=== PATIENT | female | born 1945 | race Caucasian/White ===

== ENCOUNTER 2022-11-24 15:16 | Inpatient (IN) | payer OTHER ==
[~2022-11-24] VITALS: Ht 162.6 cm; Wt 73.7 kg
[2022-11-24 16:08] LABS: Basophils # (auto) 0.1 10 ^3/uL (0-0.2); Basophils % (auto) 0.5 % (0.0-2.0); Eosinophils # (auto) 0.1 10 ^3/uL (0-0.8); Eosinophils % (auto) 0.6 % (0.0-7.0); Hematocrit 40.1 % (36.0-46.0); Hemoglobin 13.3 g/dL (12.2-16.2); Lymphocytes # (auto) 1.4 10 ^3/uL (0.4-5.4); Lymphocytes % (auto) 9.3 % (10.0-50.0); Mean Corpuscular Hemoglobin 29.7 pg (28.0-32.0); Mean Corpuscular Hgb Conc. 33.3 g/dL (32.0-36.0); Mean Corpuscular Volume 89.2 fL (80.0-100.0); Monocytes # (auto) 1.3 10 ^3/uL (0-1.3); Monocytes % (auto) 8.7 % (0.0-12.0); Neutrophils # (auto) 12.4 10 ^3/uL (1.6-8.6); Neutrophils % (auto) 80.9 % (37.0-80.0); Nucleated Red Blood Cells % 0.1 %; Red Blood Cells 4.49 10^6/uL (4.0-5.20); Red Cell Distribution Width 14.5 % (11.8-14.3); White Blood Cell 15.3 10^3/uL (4.4-10.8)
[2022-11-24 16:27] LABS: Albumin 2.8 g/dL (3.4-5.0); BUN/Creatinine Ratio 23.5; Calcium 9.3 mg/dL (8.5-10.1); Potassium 3.5 mmol/L (3.5-5.1)
[2022-11-24 16:35] LABS: CRP High Sensitivity 4.94 mg/dL (< 0.3); Total Protein 7.2 g/dL (6.4-8.2)
[2022-11-24] MEDS ORDERED: CLINDAMYCIN 900MG IV 50 ML IV ONE (19:15)
[2022-11-24] MEDS ORDERED: ACETAMINOPHEN 325 MG TAB PO PRN (22:45)
[2022-11-24] MEDS ORDERED: ONDANSETRON HCL 4 MG/2 ML VIAL IV PRN (22:45)
[2022-11-24] MEDS ORDERED: SODIUM CHLORIDE 0.9% 1,000 ML IV SCH (22:45)
[2022-11-24] MEDS ORDERED: DOCUSATE SOD 100 MG CAP PO PRN (22:45)
[2022-11-24] MEDS ORDERED: CLINDAMYCIN 600MG IV 50 ML IV SCH (23:01)
[2022-11-25] MEDS ORDERED: MORPHINE SULFATE INJ 2 MG/ml SYRG IV PRN (02:15)
[2022-11-25] MEDS ORDERED: NITROGLYCERIN 0.4 MG SL TAB SL PRN (02:15)
[2022-11-25] MEDS: HYDROcodone-ACET 5/325MG TAB PO PRN ×2 (03:26→22:33)
[2022-11-25 07:01] LABS: Albumin 2.2 g/dL (3.4-5.0); BUN/Creatinine Ratio 26.4; Calcium 8.6 mg/dL (8.5-10.1); Potassium 3.4 mmol/L (3.5-5.1)
[2022-11-25 07:03] LABS: Total Protein 6.2 g/dL (6.4-8.2)
[2022-11-25 09:21] LABS: Basophils # (auto) 0.1 10 ^3/uL (0-0.2); Basophils % (auto) 0.5 % (0.0-2.0); Eosinophils # (auto) 0.1 10 ^3/uL (0-0.8); Hematocrit 35.5 % (36.0-46.0); Hemoglobin 11.4 g/dL (12.2-16.2); Lymphocytes # (auto) 1.5 10 ^3/uL (0.4-5.4); Lymphocytes % (auto) 11.3 % (10.0-50.0); Mean Corpuscular Hemoglobin 28.3 pg (28.0-32.0); Mean Corpuscular Volume 88.5 fL (80.0-100.0); Monocytes # (auto) 1.1 10 ^3/uL (0-1.3); Monocytes % (auto) 8.5 % (0.0-12.0); Neutrophils # (auto) 10.4 10 ^3/uL (1.6-8.6); Neutrophils % (auto) 78.7 % (37.0-80.0); Nucleated Red Blood Cells % 0.1 %; Red Blood Cells 4.01 10^6/uL (4.0-5.20); Red Cell Distribution Width 14.1 % (11.8-14.3); White Blood Cell 13.1 10^3/uL (4.4-10.8)
[2022-11-25] MEDS ORDERED: CLINDAMYCIN 600MG IV 50 ML IV SCH (10:00)
[2022-11-25] MEDS ORDERED: POTASSIUM CHL 20 Meq TABLET PO ONE (10:30)
[2022-11-25] MEDS ORDERED: ERGOCALCIFEROL 50,000 UNIT(1.25MG) CAP PO SCH (10:45)
[2022-11-25] MEDS ORDERED: VANCOMYCIN PER PHARMACY 0 MG IV SCH (12:00)
[2022-11-25] MEDS ORDERED: VANCOMYCIN 1GM/250ML 250 ML IV ONE (12:45)
[2022-11-25] MEDS: AMPICILLIN & SULBACTAM SODIUM 3 GM in SODIUM CHL 0.9% 100 ML IV SCH ×3 (15:28→22:40)
[2022-11-25] MEDS: ZINC SULFATE 220mg CAP or TAB PO SCH (15:38)
[2022-11-25] MEDS: ASCORBIC ACID 500 MG TAB PO SCH ×2 (15:38→22:33)
[2022-11-25] MEDS: ENOXAPARIN SOD 40 MG/0.4 ML SYRINGE SC SCH (15:39)
[2022-11-25 22:12] VITALS: BP 130/65
[2022-11-26] VITALS (7 sets, daily range): BP systolic 102–140; BP diastolic 46–70
[2022-11-26] MEDS: IBUPROFEN 400 MG TAB PO PRN (02:19)
[2022-11-26] MEDS: AMPICILLIN & SULBACTAM SODIUM 3 GM in SODIUM CHL 0.9% 100 ML IV SCH ×4 (04:30→21:31)
[2022-11-26 08:14] LABS: Basophils # (auto) 0.1 10 ^3/uL (0-0.2); Basophils % (auto) 0.6 % (0.0-2.0); Eosinophils # (auto) 0.2 10 ^3/uL (0-0.8); Eosinophils % (auto) 1.6 % (0.0-7.0); Hematocrit 33.6 % (36.0-46.0); Lymphocytes # (auto) 1.9 10 ^3/uL (0.4-5.4); Mean Corpuscular Hemoglobin 29.2 pg (28.0-32.0); Mean Corpuscular Hgb Conc. 32.8 g/dL (32.0-36.0); Monocytes % (auto) 9.8 % (0.0-12.0); Neutrophils # (auto) 6.9 10 ^3/uL (1.6-8.6); Nucleated Red Blood Cells % 0.1 %; Red Blood Cells 3.77 10^6/uL (4.0-5.20); Red Cell Distribution Width 14.1 % (11.8-14.3); White Blood Cell 9.9 10^3/uL (4.4-10.8)
[2022-11-26 08:34] LABS: Calcium 7.9 mg/dL (8.5-10.1); Magnesium 2.2 mg/dL (1.6-2.6); Potassium 3.3 mmol/L (3.5-5.1)
[2022-11-26 08:37] LABS: Phosphorus 2.6 mg/dL (2.5-4.90)
[2022-11-26] MEDS: ASCORBIC ACID 500 MG TAB PO SCH ×2 (10:46→21:31)
[2022-11-26] MEDS: ENOXAPARIN SOD 40 MG/0.4 ML SYRINGE SC SCH (10:46)
[2022-11-26] MEDS: ZINC SULFATE 220mg CAP or TAB PO SCH (10:46)
[2022-11-26] MEDS: VANCOMYCIN 1GM/250ML 250 ML IV SCH (12:34)
[2022-11-26] MEDS: HYDROcodone-ACET 5/325MG TAB PO PRN (19:31)
[2022-11-27] MEDS: IBUPROFEN 400 MG TAB PO PRN ×4 (00:44→22:51)
[2022-11-27] MEDS: HYDROcodone-ACET 5/325MG TAB PO PRN ×4 (01:43→18:25)
[2022-11-27] MEDS: AMPICILLIN & SULBACTAM SODIUM 3 GM in SODIUM CHL 0.9% 100 ML IV SCH ×3 (04:24→15:16)
[2022-11-27 04:27] VITALS: BP 135/70
[2022-11-27] MEDS: VANCOMYCIN 1GM/250ML 250 ML IV SCH (05:45)
[2022-11-27] MEDS: ZINC SULFATE 220mg CAP or TAB PO SCH (08:06)
[2022-11-27] MEDS: ENOXAPARIN SOD 40 MG/0.4 ML SYRINGE SC SCH (08:07)
[2022-11-27] MEDS: ASCORBIC ACID 500 MG TAB PO SCH ×2 (08:07→22:50)
[2022-11-27 08:10] VITALS: BP 124/69
[2022-11-27 09:17] VITALS: BP 142/71
[2022-11-27 13:10] VITALS: BP 130/57
[2022-11-27] MEDS ORDERED: CIP500T GT (14:48)
[2022-11-27] MEDS ORDERED: SILV-21 EX (14:48)
[2022-11-27] MEDS ORDERED: IBUP600T28 PO (14:48)
[2022-11-27] MEDS ORDERED: LEUC5TAB PO (14:48)
[2022-11-27] MEDS ORDERED: ONDA-155 PO (14:48)
[2022-11-27] MEDS: ERTAPENEM SOD INJ 1 GM in SODIUM CHL 0.9% 50 ML IV SCH (16:43)
[2022-11-27 17:00] VITALS: BP 130/65
[2022-11-27 22:00] VITALS: BP 155/70
[2022-11-28 05:00] VITALS: BP 119/67
[2022-11-28] MEDS: IBUPROFEN 400 MG TAB PO PRN ×2 (05:18→23:46)
[2022-11-28 08:10] VITALS: BP 149/74
[2022-11-28] MEDS: ENOXAPARIN SOD 40 MG/0.4 ML SYRINGE SC SCH (09:09)
[2022-11-28] MEDS: ASCORBIC ACID 500 MG TAB PO SCH ×2 (09:10→20:25)
[2022-11-28] MEDS: ZINC SULFATE 220mg CAP or TAB PO SCH (09:10)
[2022-11-28] MEDS: HYDROcodone-ACET 5/325MG TAB PO PRN ×2 (09:10→20:24)
[2022-11-28 09:56] LABS: BUN/Creatinine Ratio 14.1; Magnesium 1.9 mg/dL (1.6-2.6); Potassium 4.1 mmol/L (3.5-5.1)
[2022-11-28 09:57] LABS: Basophils # (auto) 0.1 10 ^3/uL (0-0.2); Basophils % (auto) 0.7 % (0.0-2.0); Eosinophils # (auto) 0.3 10 ^3/uL (0-0.8); Eosinophils % (auto) 3.1 % (0.0-7.0); Hematocrit 35.1 % (36.0-46.0); Hemoglobin 11.5 g/dL (12.2-16.2); Lymphocytes # (auto) 1.6 10 ^3/uL (0.4-5.4); Lymphocytes % (auto) 17.6 % (10.0-50.0); Mean Corpuscular Hemoglobin 29.7 pg (28.0-32.0); Mean Corpuscular Hgb Conc. 32.8 g/dL (32.0-36.0); Mean Corpuscular Volume 90.4 fL (80.0-100.0); Monocytes # (auto) 0.6 10 ^3/uL (0-1.3); Monocytes % (auto) 6.7 % (0.0-12.0); Neutrophils # (auto) 6.6 10 ^3/uL (1.6-8.6); Neutrophils % (auto) 71.9 % (37.0-80.0); Red Blood Cells 3.88 10^6/uL (4.0-5.20); Red Cell Distribution Width 14.5 % (11.8-14.3); White Blood Cell 9.2 10^3/uL (4.4-10.8)
[2022-11-28] MEDS: ERTAPENEM SOD INJ 1 GM in SODIUM CHL 0.9% 50 ML IV SCH (10:23)
[2022-11-28 12:15] VITALS: BP 139/62
[2022-11-28 16:15] VITALS: BP 127/66
[2022-11-28 20:00] VITALS: BP 150/69
[2022-11-28 22:00] VITALS: BP 150/69
[2022-11-29 05:00] VITALS: BP 116/65
[2022-11-29 06:25] LABS: Calcium 8.3 mg/dL (8.5-10.1); Potassium 4.2 mmol/L (3.5-5.1)
[2022-11-29 06:42] LABS: BUN/Creatinine Ratio 12.5; CRP High Sensitivity 1.47 mg/dL (< 0.3)
[2022-11-29 06:44] LABS: Basophils # (auto) 0.1 10 ^3/uL (0-0.2); Basophils % (auto) 0.8 % (0.0-2.0); Eosinophils # (auto) 0.3 10 ^3/uL (0-0.8); Eosinophils % (auto) 3.6 % (0.0-7.0); Hematocrit 36.2 % (36.0-46.0); Hemoglobin 11.7 g/dL (12.2-16.2); Lymphocytes % (auto) 24.7 % (10.0-50.0); Mean Corpuscular Hgb Conc. 32.4 g/dL (32.0-36.0); Mean Corpuscular Volume 89.6 fL (80.0-100.0); Monocytes # (auto) 0.8 10 ^3/uL (0-1.3); Monocytes % (auto) 9.7 % (0.0-12.0); Neutrophils # (auto) 4.9 10 ^3/uL (1.6-8.6); Neutrophils % (auto) 61.2 % (37.0-80.0); Nucleated Red Blood Cells % 0.1 %; Red Blood Cells 4.03 10^6/uL (4.0-5.20); Red Cell Distribution Width 14.2 % (11.8-14.3)
[2022-11-29 09:00] VITALS: BP 126/67
[2022-11-29] MEDS: ERTAPENEM SOD INJ 1 GM in SODIUM CHL 0.9% 50 ML IV SCH (09:10)
[2022-11-29] MEDS: ENOXAPARIN SOD 40 MG/0.4 ML SYRINGE SC SCH (09:11)
[2022-11-29] MEDS: ZINC SULFATE 220mg CAP or TAB PO SCH (09:11)
[2022-11-29] MEDS: ASCORBIC ACID 500 MG TAB PO SCH ×2 (09:11→21:19)
[2022-11-29] MEDS: HYDROcodone-ACET 5/325MG TAB PO PRN ×3 (09:12→21:20)
[2022-11-29 13:00] VITALS: BP 139/67
[2022-11-29 16:31] VITALS: BP 146/70
[2022-11-29 22:00] VITALS: BP 109/57
[2022-11-30 05:00] VITALS: BP 136/71
[2022-11-30] MEDS: ENOXAPARIN SOD 40 MG/0.4 ML SYRINGE SC SCH (09:25)
[2022-11-30] MEDS: ASCORBIC ACID 500 MG TAB PO SCH ×2 (09:25→21:15)
[2022-11-30] MEDS: ZINC SULFATE 220mg CAP or TAB PO SCH (09:25)
[2022-11-30] MEDS: HYDROcodone-ACET 5/325MG TAB PO PRN (09:26)
[2022-11-30] MEDS: ERTAPENEM SOD INJ 1 GM in SODIUM CHL 0.9% 50 ML IV SCH (09:31)
[2022-11-30 09:36] VITALS: BP 144/70
[2022-11-30 13:00] VITALS: BP 147/75
[2022-11-30 16:52] VITALS: BP 139/75
[2022-11-30 22:00] VITALS: BP 133/66
[2022-12-01 05:00] VITALS: BP 142/69
[2022-12-01 09:00] VITALS: BP 155/69
[2022-12-01] MEDS: HYDROcodone-ACET 5/325MG TAB PO PRN (09:39)
[2022-12-01] MEDS: ASCORBIC ACID 500 MG TAB PO SCH (09:41)
[2022-12-01] MEDS: ZINC SULFATE 220mg CAP or TAB PO SCH (09:41)
[2022-12-01] MEDS: ERTAPENEM SOD INJ 1 GM in SODIUM CHL 0.9% 50 ML IV SCH (09:42)
[2022-12-01] MEDS: ENOXAPARIN SOD 40 MG/0.4 ML SYRINGE SC SCH (09:42)
[2022-12-01 12:43] VITALS: BP 138/100
== END 2022-12-01 13:57 | DRG 602 ==
LOC: ER 15:16 → OVERFLOW 11-25 02:14 → WEST WING 11-25 21:20
PROVIDERS: ADMIT Nurse Practitioner Family; ATTEND Internal Medicine
DX: L03.115 Cellulitis of right lower limb (principal); E43 Unspecified severe protein-calorie malnutrition; R65.10 Systemic inflammatory response syndrome (SIRS) of non-infectious origin without acute organ dysfunction; L03.116 Cellulitis of left lower limb; E88.09 Other disorders of plasma-protein metabolism, not elsewhere classified; G89.29 Other chronic pain; E66.01 Morbid (severe) obesity due to excess calories; L89.610 Pressure ulcer of right heel, unstageable; I89.0 Lymphedema, not elsewhere classified; L97.519 Non-pressure chronic ulcer of other part of right foot with unspecified severity; M06.9 Rheumatoid arthritis, unspecified; Z68.28 Body mass index [BMI] 28.0-28.9, adult
CPT/HCPCS: 36415; 71045; 73630; 80048; 80053; 82306; 82565; 83036; 83735; 83880; 84100; 84443; 85025; 85652; 86141; 87077; 87186; 87205; 87426; 93005; 93925; 93970; 96361; 96365; G0378; J1335; J2405; J3490